=== PATIENT | female | born 1955 | race Caucasian/White ===

== ENCOUNTER 2016-07-31 15:31 | Emergency (ER) | payer OTHER ==
[~2016-07-31 15:31] MED LIST: CELEXA10 MG PO; HUMALOG100 U/ML SQ; LANTUS100 U/ML SC; LANTUS100 UNITS/ SC; PERCOCET 5-3251 EACH PO; PHENERGAN W/CO120 ML PO; ULTRAM50 M1 PO; ZOLOFT50 M1 PO
[2016-07-31] MEDS ORDERED: TRAMADOL HCL50 M2 PO (17:31)
== END 2016-07-31 17:37 ==
LOC: EDMED 15:31
DX: S46.011A Strain of muscle(s) and tendon(s) of the rotator cuff of right shoulder, initial encounter (principal); F17.210 Nicotine dependence, cigarettes, uncomplicated; X50.9XXA Other and unspecified overexertion or strenuous movements or postures, initial encounter; Y92.69 Other specified industrial and construction area as the place of occurrence of the external cause; Y99.0 Civilian activity done for income or pay